=== PATIENT | female | born 1940 | race Caucasian/White ===

== ENCOUNTER 2023-10-03 10:29 | Inpatient (IN) | payer MEDICARE, BC ==
[~2023-10-03] VITALS: Ht 170.2 cm; Wt 77.0 kg
[2023-10-03 11:10] LABS: HEMATOCRIT 31.2 % (35.0-45.0); HEMOGLOBIN 10.4 g/dl (12.0-16.0); MEAN CORPUSCULAR HEMOGLOBIN 31.3 PG (27.0-31.0); MEAN CORPUSCULAR HGB CONC 33.5 g/dL (33.0-36.5); MEAN CORPUSCULAR VOLUME 93.6 FL (78-98); MEAN PLATELET VOLUME 9.2 FL (7.4-10.4); PLATELET COUNT 308 X10'3 (140-440); RED BLOOD COUNT 3.34 X10'6 (4.20-5.60); RED CELL DISTRIBUTION WIDTH 17.8 % (11.5-14.5); WHITE BLOOD COUNT 6.8 X10'3 (4.5-11.0)
[2023-10-03 11:26] LABS: ALANINE AMINOTRANSFERASE 597 U/L (12-78); ALBUMIN 2.1 G/DL (3.4-5.0); ALKALINE PHOSPHATASE 931 IU/L (46-116); ANION GAP 10 (8-16); ASPARTATE AMINO TRANSFERASE 480 U/L (10-37); BILIRUBIN,TOTAL 12.7 MG/DL (0.1-1.0); BLOOD UREA NITROGEN 23 MG/DL (7-18); BUN/CREATININE RATIO 42.6 (10.0-20.0); CALCIUM 8.7 MG/DL (8.5-10.1); CHLORIDE 97 MMOL/L (99-107); CREATININE 0.54 MG/DL (0.40-0.90); GLUCOSE 139 MG/DL (70-104); LIPASE 20 U/L (16-77); SODIUM 130 MMOL/L (135-145); TOTAL CARBON DIOXIDE 23.4 MMOL/L (24-32); eCRCL 75 ML/MIN; eGFR > 90 ML/MIN
[2023-10-03 11:38] LABS: ALBUMIN/GLOBULIN RATIO 0.5 (1.1-1.5); POTASSIUM 4.1 MMOL/L (3.5-5.1); TOTAL PROTEIN 6.1 G/DL (6.4-8.2)
[2023-10-03] MEDS ORDERED: ondansetron/PF 4mg/2ml inj IV PRN (11:55)
[2023-10-03] MEDS ORDERED: magnesium hydroxide 30ml (MOM) UD suspension PO PRN (11:55)
[2023-10-03] MEDS ORDERED: morphine 2 MG/ML inj. syringe IV PRN ×2 (11:55)
[2023-10-03] MEDS ORDERED: acetaminophen 325mg tablet PO PRN ×2 (11:55)
[2023-10-03] MEDS ORDERED: mag hydrox/Alum hydrox/simeth 30ml oral suspension PO PRN (11:55)
[2023-10-03 12:02] LABS: TOTAL CELLS COUNTED 100
[2023-10-03 12:03] LABS: ANISOCYTOSIS 1+; PLATELET ESTIMATE NORMAL; TARGET CELLS 1+
[2023-10-03] MEDS: dextrose 5%-1/2 normal saline 1,000 ML IV SCH (12:40)
[2023-10-03] MEDS ORDERED: LOSA50TA64 PO (14:45)
[2023-10-03 15:48] LABS: BILIRUBIN,URINE LARGE (Neg); CLARITY,URINE CLOUDY (Clear); COLOR,URINE YELLOW (Yellow); GLUCOSE, URINE 100 mg/dl (Neg); KETONES,URINE NEGATIVE (Neg); LEUKOCYTE ESTERASE ,URINE SMALL (Neg); NITRITES, URINE NEGATIVE (Neg); OCCULT BLOOD,URINE NEGATIVE (Neg); PH,URINE 5.5 (4.8-8.0); PROTEIN,URINE NEGATIVE (Neg); UA COLLECTION TYPE VOIDED; UROBILINOGEN,URINE 0.2 E.U/dL (0.2-1.0)
[2023-10-03 15:52] LABS: WBC CLUMPS,URINE MANY /HPF (NEGATIVE)
[2023-10-03 15:53] LABS: BACTERIA,URINE 2+ /HPF (Neg); MUCUS STRANDS FEW /LPF (Neg); RBC,URINE 0-2 /HPF (0-2); SQUAMOUS EPITHELIAL CELL,UR MODERATE /LPF (FEW); TRANSITIONAL EPI CELLS,URINE FEW /HPF; WBC,URINE TNTC /HPF (0-4)
[2023-10-03 17:50] VITALS: BP 127/50; PULSE 77; RESP 23; TEMP 98; O2SAT 97
[2023-10-03] MEDS: docusate sod 100mg capsule PO SCH (20:00)
[2023-10-03 22:00] VITALS: BP 130/60; PULSE 91; RESP 25; TEMP 97.9; O2SAT 95
[2023-10-04] VITALS (21 sets, daily range): BP systolic 117–151; BP diastolic 49–70; PULSE 62–99; RESP 12–24; TEMP 96.8–99; O2SAT 94–99
[2023-10-04] MEDS: diphenhydrAMINE 25mg capsule PO PRN (04:29)
[2023-10-04 05:52] LABS: HEMOGLOBIN 10.2 g/dl (12.0-16.0); MEAN CORPUSCULAR HEMOGLOBIN 31.1 PG (27.0-31.0)
[2023-10-04 05:53] LABS: HEMATOCRIT 30.5 % (35.0-45.0); MEAN CORPUSCULAR HGB CONC 33.4 g/dL (33.0-36.5); MEAN CORPUSCULAR VOLUME 93.3 FL (78-98); MEAN PLATELET VOLUME 8.9 FL (7.4-10.4); PLATELET COUNT 289 X10'3 (140-440); RED BLOOD COUNT 3.27 X10'6 (4.20-5.60); RED CELL DISTRIBUTION WIDTH 18.2 % (11.5-14.5); WHITE BLOOD COUNT 7.4 X10'3 (4.5-11.0)
[2023-10-04 07:19] LABS: TOTAL CELLS COUNTED 100
[2023-10-04 07:20] LABS: ANISOCYTOSIS 1+; PLATELET ESTIMATE NORMAL; TARGET CELLS 1+
[2023-10-04 07:21] LABS: LARGE PLATELETS FEW
[2023-10-04 07:23] LABS: ALANINE AMINOTRANSFERASE 573 U/L (12-78); ALKALINE PHOSPHATASE 898 IU/L (46-116); ANION GAP 8 (8-16); ASPARTATE AMINO TRANSFERASE 348 U/L (10-37); BILIRUBIN,TOTAL 7.9 MG/DL (0.1-1.0); BLOOD UREA NITROGEN 20 MG/DL (7-18); BUN/CREATININE RATIO 35.7 (10.0-20.0); CALCIUM 8.4 MG/DL (8.5-10.1); CHLORIDE 99 MMOL/L (99-107); CREATININE 0.56 MG/DL (0.40-0.90); GLUCOSE 163 MG/DL (70-104); SODIUM 130 MMOL/L (135-145); TOTAL CARBON DIOXIDE 23.5 MMOL/L (24-32); eCRCL 73 ML/MIN; eGFR > 90 ML/MIN
[2023-10-04 07:27] LABS: ALBUMIN/GLOBULIN RATIO 0.5 (1.1-1.5); POTASSIUM 3.9 MMOL/L (3.5-5.1); TOTAL PROTEIN 5.9 G/DL (6.4-8.2)
[2023-10-04] MEDS ORDERED: iohexol 300mg/ml 100ml inj. ONE (13:27)
[2023-10-04] MEDS ORDERED: diphenhydrAMINE 50 mg/ml inj ONE (13:27)
[2023-10-04] MEDS ORDERED: fentaNYL/PF 50MCG/1 ML 2ML syringe ONE (13:27)
[2023-10-04] MEDS ORDERED: LIDOcaine 2% Viscous 15ml cup ONE (13:27)
[2023-10-04] MEDS ORDERED: MIDAZolam 1 MG/ML 5ML VIAL ONE (13:27)
[2023-10-04] MEDS ORDERED: glucagon, human recombinant 1mg kit ONE (13:29)
[2023-10-04] MEDS ORDERED: levoFLOXACIN-Levaquin 500mg/D5 100 ML IV ONE (14:38)
[2023-10-05 05:50] LABS: MEAN CORPUSCULAR HGB CONC 33.5 g/dL (33.0-36.5); WHITE BLOOD COUNT 7.5 X10'3 (4.5-11.0)
[2023-10-05 05:52] LABS: HEMATOCRIT 29.8 % (35.0-45.0); MEAN CORPUSCULAR HEMOGLOBIN 31.4 PG (27.0-31.0); MEAN CORPUSCULAR VOLUME 93.7 FL (78-98); MEAN PLATELET VOLUME 9.2 FL (7.4-10.4); PLATELET COUNT 291 X10'3 (140-440); RED BLOOD COUNT 3.18 X10'6 (4.20-5.60); RED CELL DISTRIBUTION WIDTH 18.4 % (11.5-14.5)
[2023-10-05 05:55] LABS: ALANINE AMINOTRANSFERASE 623 U/L (12-78); ALBUMIN 1.9 G/DL (3.4-5.0); ALKALINE PHOSPHATASE 904 IU/L (46-116); ANION GAP 10 (8-16); ASPARTATE AMINO TRANSFERASE 359 U/L (10-37); BLOOD UREA NITROGEN 11 MG/DL (7-18); BUN/CREATININE RATIO 21.6 (10.0-20.0); CALCIUM 8.1 MG/DL (8.5-10.1); CHLORIDE 101 MMOL/L (99-107); CREATININE 0.51 MG/DL (0.40-0.90); GLUCOSE 148 MG/DL (70-104); POTASSIUM 3.8 MMOL/L (3.5-5.1); SODIUM 133 MMOL/L (135-145); TOTAL CARBON DIOXIDE 22.2 MMOL/L (24-32); eCRCL 80 ML/MIN; eGFR > 90 ML/MIN
[2023-10-05 06:02] LABS: ALBUMIN/GLOBULIN RATIO 0.6 (1.1-1.5); TOTAL PROTEIN 5.2 G/DL (6.4-8.2)
[2023-10-05 06:35] VITALS: BP 115/48; PULSE 82; RESP 16; TEMP 97.9; O2SAT 95
[2023-10-05] MEDS: losartan 50mg tablet PO SCH (07:13)
[2023-10-05 08:06] LABS: ANISOCYTOSIS 2+; PLATELET ESTIMATE NORMAL; STOMATOCYTES 1+; TARGET CELLS 2+; TOTAL CELLS COUNTED 100
[2023-10-05 08:07] LABS: POLYCHROMASIA FEW
[2023-10-05 08:30] VITALS: RESP 18; O2SAT 95
[2023-10-05 10:00] VITALS: BP 123/62; PULSE 85; RESP 16; TEMP 97.5; O2SAT 96
== END 2023-10-05 11:28 | disposition home or self-care (01) | DRG 435 ==
LOC: ER 10:30 → ED HOLD 11:59 → SUR 3N 17:20
PROVIDERS: ADMIT Internal Medicine; ATTEND Internal Medicine
PROC: 0F798DZ Dilation of Common Bile Duct with Intraluminal Device, Via Natural or Artificial Opening Endoscopic (ICD-10-PCS; principal; 2023-10-04)
PROC: 0FBC8ZX Excision of Ampulla of Vater, Via Natural or Artificial Opening Endoscopic, Diagnostic (ICD-10-PCS; 2023-10-04)
DX: C25.9 Malignant neoplasm of pancreas, unspecified (principal); K83.1 Obstruction of bile duct; E87.1 Hypo-osmolality and hyponatremia; J98.11 Atelectasis; K86.89 Other specified diseases of pancreas; Z66 Do not resuscitate; I10 Essential (primary) hypertension; E78.00 Pure hypercholesterolemia, unspecified; R74.01 Elevation of levels of liver transaminase levels; D64.9 Anemia, unspecified; Z90.710 Acquired absence of both cervix and uterus
CPT/HCPCS: 36415; 43261; 43262; 43274; 74330; 80053; 81001; 83690; 85007; 85025; 86301; 87081; 87088; 88108; 88305; 99152; 99153; 99285; A4620; C1769; C2625; G0378; J1200; J1610; J1956; J2250; J3010; J7030; Q0163; Q9967